=== PATIENT | female | born 1955 | race Caucasian/White ===

== ENCOUNTER 2021-05-24 13:34 | Outpatient (CLI) | payer MEDICARE ==
[2021-05-24 14:27] LABS: Hemoglobin 14.1 g/dL (12.0-15.5); Mean Corpuscular HGB CONC 33.8 g/dL (32.0-36.0); Mean Corpuscular Hemoglobin 30.1 pg (27.0-33.0); Mean Corpuscular Volume 88.9 fl (81.6-98.3); Mean Platelet Volume 9.3 fl (7.4-10.4); Platelet Count 268 10x3/uL (150-450); RBC Distribution Width 12.4 % (11.5-14.5); Red Blood Cell (RBC) Count 4.69 10x6/uL (3.90-5.03); White Blood Cell (WBC) Count 6.1 10x3/uL (3.5-10.5)
[2021-05-24 14:47] LABS: PTT 23.5 sec (22.0-33.0); Prothrombin Time 10.6 sec (9.5-12.1)
[2021-05-24 15:09] LABS: Anion Gap 14 mmol/L (10-20); BUN (Urea Nitrogen) 13 mg/dL (9.8-20.1); Calc. Creatinine Clearance 0 mL/min (70-130); Calcium 9.7 mg/dL (7.8-10.44); Carbon Dioxide 26 mmol/L (23-31); Chloride 105 mmol/L (98-107); Glucose 121 mg/dL (80-115); Potassium 3.8 mmol/L (3.5-5.1); Sodium 141 mmol/L (136-145)
[2021-05-25 08:45] LABS: SARS-CoV-2 PCR by NAA Not Detected (NotDetected)
== END 2021-05-24 13:35 | disposition home or self-care (01) ==
LOC: CSHLAB 13:34
PROVIDERS: ATTEND Orthopaedic Surgery
DX: Z01.812 Encounter for preprocedural laboratory examination (principal); Z20.822 Contact with and (suspected) exposure to COVID-19; M54.50 Low back pain, unspecified; M54.16 Radiculopathy, lumbar region; M43.16 Spondylolisthesis, lumbar region; M48.061 Spinal stenosis, lumbar region without neurogenic claudication
CPT/HCPCS: 80048; 85027; 85610; 85730; 86850; 86900; 86901; U0003; U0005

== ENCOUNTER 2021-05-29 05:24 | Inpatient (IN) | payer MEDICARE ==
[2021-05-24 14:27] LABS: Hemoglobin 14.1 g/dL (12.0-15.5); Mean Corpuscular HGB CONC 33.8 g/dL (32.0-36.0); Mean Corpuscular Hemoglobin 30.1 pg (27.0-33.0); Mean Corpuscular Volume 88.9 fl (81.6-98.3); Mean Platelet Volume 9.3 fl (7.4-10.4); Platelet Count 268 10x3/uL (150-450); RBC Distribution Width 12.4 % (11.5-14.5); Red Blood Cell (RBC) Count 4.69 10x6/uL (3.90-5.03); White Blood Cell (WBC) Count 6.1 10x3/uL (3.5-10.5)
[2021-05-24 14:47] LABS: PTT 23.5 sec (22.0-33.0); Prothrombin Time 10.6 sec (9.5-12.1)
[2021-05-24 15:09] LABS: Anion Gap 14 mmol/L (10-20); BUN (Urea Nitrogen) 13 mg/dL (9.8-20.1); Calc. Creatinine Clearance 0 mL/min (70-130); Calcium 9.7 mg/dL (7.8-10.44); Carbon Dioxide 26 mmol/L (23-31); Chloride 105 mmol/L (98-107); Glucose 121 mg/dL (80-115); Potassium 3.8 mmol/L (3.5-5.1); Sodium 141 mmol/L (136-145)
[2021-05-25 08:45] LABS: SARS-CoV-2 PCR by NAA Not Detected (NotDetected)
[2021-05-28 10:57] VITALS: BMI 36.8
[2021-05-29] MEDS ORDERED: Bupivacaine 0.25% HCL 30 ML VIAL ONE (06:27)
[2021-05-29] MEDS ORDERED: EPINEPHrine 1 MG/ML AMP ONE (06:30)
[2021-05-29] MEDS ORDERED: Lidocaine 1% MPF 2 ML VIAL ONE (06:36)
[2021-05-29] MEDS ORDERED: Famotidine/PF 20 mg/2ml Vial ONE (06:36)
[2021-05-29] MEDS ORDERED: Fentanyl 250 MCG/5 ML VIAL ONE (06:53)
[2021-05-29] MEDS ORDERED: HYDROmorphone 0.5 MG/0.5 ML SYRINGE ONE (06:53)
[2021-05-29] MEDS ORDERED: Phenylephrine 40 MG/NS 250 ML 250 ML ONE (06:54)
[2021-05-29] MEDS ORDERED: Albumin 5% 250 ML ONE (06:54)
[2021-05-29] MEDS ORDERED: Propofol 1,000 MG/100 ML VIAL IV ONE ×2 (07:03→10:43)
[2021-05-29] MEDS ORDERED: PROPOFOL 20 ML ONE ×2 (07:15→12:29)
[2021-05-29] MEDS ORDERED: Ketamine 50 MG/ML (10ML VIAL) ONE (07:15)
[2021-05-29] MEDS ORDERED: Succinylcholine 200 MG/10 ml SYRINGE FS ONE (07:18)
[2021-05-29] MEDS ORDERED: Dexamethasone 20 MG/5 ML VIAL ONE (07:18)
[2021-05-29] MEDS ORDERED: Lidocaine 1% PF 5 ML VIAL ONE (07:18)
[2021-05-29] MEDS ORDERED: Ondansetron PF 4 MG/2 ML Vial ONE ×2 (07:18→12:10)
[2021-05-29] MEDS ORDERED: Glycopyrrolate 0.2 MG/ML 5 ML SYRINGE ONE (07:19)
[2021-05-29] MEDS ORDERED: Midazolam HCl 2 mg/2 ml Vial ONE (07:20)
[2021-05-29] MEDS ORDERED: ePHEDrine Sulfate 50 MG/10 ML VIAL ONE (07:33)
[2021-05-29] MEDS ORDERED: Mineral Oil Sterile 10 ML VIAL ONE (10:50)
[2021-05-29] MEDS ORDERED: CEFAZOLIN 1 GM VIAL ONE ×2 (11:01→11:04)
[2021-05-29] MEDS ORDERED: Ketorolac Tromethamine 30 MG/ML VIAL ONE (12:10)
[2021-05-29] MEDS ORDERED: Ondansetron PF 4 MG/2 ML Vial IVP PRN (12:51)
[2021-05-29] MEDS ORDERED: traMADol HCl 50 MG TAB PO PRN (12:51)
[2021-05-29] MEDS ORDERED: Morphine 4 MG/ML VIAL SLOW IVP PRN (12:51)
[2021-05-29] MEDS ORDERED: Non-Formulary Medication 1 EACH (Evolocumab [Repatha Syringe] 140 MG/ML Syringe) SC SCH (13:00)
[2021-05-29] MEDS ORDERED: TETANUS AND DIPHTHERIA TOX/PF 0.5 ML DISP.SYRIN IM SCH (13:00)
[2021-05-29] MEDS ORDERED: Communication Order-Pharmacy FS SCH (13:00)
[2021-05-29] MEDS ORDERED: Fentanyl 100 MCG/2 ML VIAL ONE (14:45)
[2021-05-29] MEDS ORDERED: FLU VACC QS2021-22(65YR UP)/PF 240 MCG/0.7 ML SYRINGE IM ONE (17:30)
[2021-05-29] MEDS: HYDROcodone/Acetaminophen 10/325 mg Tablet PO PRN (21:05)
[2021-05-29] MEDS: Aspirin 81 mg Enteric Coated Tablet PO SCH (21:06)
[2021-05-29] MEDS: Amlodipine 5 MG TAB PO SCH (21:07)
[2021-05-30] MEDS: HYDROcodone/Acetaminophen 10/325 mg Tablet PO PRN ×5 (02:01→21:28)
[2021-05-30 05:01] LABS: #Monocytes 0.9 10x3/uL (0.0-1.1); #Neutrophils 9.7 10x3/uL (1.5-8.4); %Basophils 0.1 % (0.0-2.0); %Eosinophils 0.1 % (0.0-6.0); %Lymphocytes 11.1 % (18.0-47.0); %Monocytes 7.5 % (0.0-10.0); %Neutrophils 80.9 % (40.0-75.0); Hemoglobin 11.4 g/dL (12.0-15.5); Mean Corpuscular HGB CONC 33.6 g/dL (32.0-36.0); Mean Corpuscular Hemoglobin 29.9 pg (27.0-33.0); Mean Platelet Volume 9.2 fl (7.4-10.4); Platelet Count 226 10x3/uL (150-450); RBC Distribution Width 12.7 % (11.5-14.5); Red Blood Cell (RBC) Count 3.81 10x6/uL (3.90-5.03); White Blood Cell (WBC) Count 11.9 10x3/uL (3.5-10.5)
[2021-05-30 05:13] LABS: Anion Gap 14 mmol/L (10-20); BUN (Urea Nitrogen) 13 mg/dL (9.8-20.1); Calc. Creatinine Clearance 127 mL/min (70-130); Calcium 8.7 mg/dL (7.8-10.44); Carbon Dioxide 25 mmol/L (23-31); Chloride 107 mmol/L (98-107); Glucose 116 mg/dL (80-115); Magnesium 1.9 mg/dL (1.6-2.6); Potassium 4.3 mmol/L (3.5-5.1); Sodium 142 mmol/L (136-145)
[2021-05-30 05:24] LABS: Troponin I Less than 0.010 ng/mL (< 0.028)
[2021-05-30] MEDS: Losartan Potassium 50 MG TAB PO SCH (07:39)
[2021-05-30] MEDS: Aspirin 81 mg Enteric Coated Tablet PO SCH ×2 (07:40→21:28)
[2021-05-30] MEDS: Amlodipine 5 MG TAB PO SCH ×2 (07:40→21:28)
[2021-05-30] MEDS: Hydrochlorothiazide 25 MG TAB PO SCH (07:40)
[2021-05-30] MEDS: Cholecalciferol 1,000 UNITS (25 MCG) TAB PO SCH (07:40)
[2021-05-30] MEDS ORDERED: Aspirin 81 mg Enteric Coated Tablet PO SCH (09:00)
[2021-05-30] MEDS ORDERED: Cepastat Lozenges 1 LOZ PO PRN (10:03)
[2021-05-31] MEDS ORDERED: Acetaminophen 325 MG TAB PO PRN (04:40)
[2021-05-31] MEDS: HYDROcodone/Acetaminophen 10/325 mg Tablet PO PRN ×2 (04:51→11:30)
[2021-05-31 05:20] LABS: #Eosinphils 0.1 10x3/uL (0.0-0.5); #Monocytes 0.8 10x3/uL (0.0-1.1); #Neutrophils 5.8 10x3/uL (1.5-8.4); %Basophils 0.3 % (0.0-2.0); %Eosinophils 1.1 % (0.0-6.0); %Lymphocytes 27.6 % (18.0-47.0); %Monocytes 8.1 % (0.0-10.0); %Neutrophils 62.4 % (40.0-75.0); Hemoglobin 11.2 g/dL (12.0-15.5); Mean Corpuscular HGB CONC 32.6 g/dL (32.0-36.0); Mean Corpuscular Volume 92.2 fl (81.6-98.3); Mean Platelet Volume 9.1 fl (7.4-10.4); Platelet Count 227 10x3/uL (150-450); RBC Distribution Width 12.9 % (11.5-14.5); Red Blood Cell (RBC) Count 3.73 10x6/uL (3.90-5.03); White Blood Cell (WBC) Count 9.4 10x3/uL (3.5-10.5)
[2021-05-31 07:29] LABS: Bilirubin Neg (Negative); Blood, Urine 10 (Negative); Clarity Clear (Clear); Glucose, Urine (Dipstick) Normal (Negative); Ketone, Urine Negative (Negative); Leukocyte Negative (Negative); Nitrite Negative (Negative); Protein, Urine (Dipstick) Negative (Neg-Trace); Urobilinogen Normal mg/dL (Less than 2)
[2021-05-31 07:30] LABS: Urine Culture Reflex No No
[2021-05-31 08:17] LABS: Bacteria/HPF None Seen HPF (None Seen); RBC/HPF 0-3 HPF (0-3); Squamous Epithelial 0-3 HPF (0-3); WBC/HPF 0-3 HPF (0-3)
[2021-05-31] MEDS: Amlodipine 5 MG TAB PO SCH (11:25)
[2021-05-31] MEDS: Aspirin 81 mg Enteric Coated Tablet PO SCH (11:25)
[2021-05-31] MEDS: Cholecalciferol 1,000 UNITS (25 MCG) TAB PO SCH (11:27)
[2021-05-31] MEDS: Losartan Potassium 50 MG TAB PO SCH (11:29)
[2021-05-31] MEDS: Hydrochlorothiazide 25 MG TAB PO SCH (11:29)
[2021-05-31 12:29] VITALS: TEMP 98.8
[2021-05-31 14:17] VITALS: BP 154/77
[2021-06-01] MEDS ORDERED: Clopidogrel Bisulfate 75 MG TAB PO SCH (09:00)
== END 2021-05-31 15:00 | DRG 455 ==
LOC: CSHSDC 05:24 → CSHTELE 16:03
PROVIDERS: ADMIT Orthopaedic Surgery; ATTEND Physician Assistant Medical
PROC: 0SG0071 Fusion of Lumbar Vertebral Joint with Autologous Tissue Substitute, Posterior Approach, Posterior Column, Open Approach (ICD-10-PCS; principal; 2021-05-29)
PROC: 0SG00AJ Fusion of Lumbar Vertebral Joint with Interbody Fusion Device, Posterior Approach, Anterior Column, Open Approach (ICD-10-PCS; 2021-05-29)
PROC: 00NY0ZZ Release Lumbar Spinal Cord, Open Approach (ICD-10-PCS; 2021-05-29)
PROC: 4A11X4G Monitoring of Peripheral Nervous Electrical Activity, Intraoperative, External Approach (ICD-10-PCS; 2021-05-29)
DX: M48.062 Spinal stenosis, lumbar region with neurogenic claudication (principal); M54.16 Radiculopathy, lumbar region; M43.16 Spondylolisthesis, lumbar region; Z20.822 Contact with and (suspected) exposure to COVID-19; E78.5 Hyperlipidemia, unspecified; I10 Essential (primary) hypertension; K76.0 Fatty (change of) liver, not elsewhere classified; I87.2 Venous insufficiency (chronic) (peripheral); I25.118 Atherosclerotic heart disease of native coronary artery with other forms of angina pectoris; Z96.651 Presence of right artificial knee joint; Z79.899 Other long term (current) drug therapy; Z79.82 Long term (current) use of aspirin; Z95.1 Presence of aortocoronary bypass graft; Z90.710 Acquired absence of both cervix and uterus
CPT/HCPCS: 36415; 71045; 72110; 76000; 80048; 81001; 83735; 84484; 85025; 85027; 85610; 85730; 86850; 86900; 86901; 87040; 93005; 93010; 94760; C1713; C1763; J0171; J0690; J1100; J1170; J1885; J2250; J2270; J2405; J2704; J3010; P9045; S0020; S0028; U0003; U0005